=== PATIENT | male | born 1995 | race Caucasian/White ===

== ENCOUNTER 2017-04-01 13:48 | Emergency (ER) | payer OTHER ==
[~2017-04-01] VITALS: Ht 172.7 cm; Wt 63.5 kg
[~2017-04-01 13:48] MED LIST: CYCL-36 PO; IBUP-232 PO; Z.0.NO CURRENT MEDS
[2017-04-01 13:49] VITALS: BP 123/77; PULSE 89; RESP 18; TEMP 97.8; O2SAT 98
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
[2017-04-01] MEDS ORDERED: IBUP-232 PO (15:15)
[2017-04-01] MEDS ORDERED: CYCL10TA PO (15:15)
== END 2017-04-01 15:22 | disposition home or self-care (01) ==
LOC: NEPD 13:48
DX: S46.911A Strain of unspecified muscle, fascia and tendon at shoulder and upper arm level, right arm, initial encounter (principal); S16.1XXA Strain of muscle, fascia and tendon at neck level, initial encounter; J45.909 Unspecified asthma, uncomplicated; V43.52XA Car driver injured in collision with other type car in traffic accident, initial encounter; Z88.0 Allergy status to penicillin; Z88.1 Allergy status to other antibiotic agents
CPT/HCPCS: 72050; 73030; 99284; L0150

== ENCOUNTER 2017-07-01 09:40 | Inpatient (IN) | payer OTHER ==
[2017-07-01] VITALS (11 sets, daily range): BP systolic 113–134; BP diastolic 57–80; PULSE 92–132; RESP 18–31; TEMP 98.1–98.7; O2SAT 93–100
[~2017-07-01] VITALS: Ht 175.3 cm; Wt 64.0 kg
[~2017-07-01 09:40] MED LIST changes: +CYCL10TA PO
[2017-07-01] MEDS ORDERED: VENTAER INH (09:56)
[2017-07-01] MEDS ORDERED: ALBU.5I NEB (09:56)
[2017-07-01] MEDS ORDERED: RESP: ALBUTEROL 2.5 MG/IPRATROPIUM 0.5 MG NEB (SCH) INH ONE (10:00)
[2017-07-01] MEDS ORDERED: SODIUM CHLORIDE 0.9% FLUSH 10 ML FLUSH IVF PRN (10:00)
[2017-07-01] MEDS ORDERED: methylPREDNISolone SOD SUCC 125 MG/2 ML VIAL IV PUSH ONE (10:00)
[2017-07-01] MEDS ORDERED: ONDANSETRON HCL 4 MG/2 ML VIAL IVP ONE (10:00)
[2017-07-01] MEDS ORDERED: ONDANSETRON HCL 4 MG/2 ML VIAL ONE (10:00)
[2017-07-01] MEDS ORDERED: RESP: RACEPINEPHRINE 2.25% 0.5 ML NEB INH ONE (10:00)
[2017-07-01] MEDS: RESP: ALBUTEROL 2.5 MG/3 ML NEB (SCH) INH (10:11)
[2017-07-01 10:25] LABS: AUTOMATED NEUTROPHIL # 14.4 TH/MM3 (1.8-7.7); BASOPHIL # 0.1 TH/MM3 (0-0.2); BASOPHIL % 0.3 % (0.0-2.0); EOSINOPHIL % 5.6 % (0.0-4.0); HEMATOCRIT 45.3 % (39.0-51.0); HEMOGLOBIN 15.3 GM/DL (13.0-17.0); LYMPHOCYTE # 2.1 TH/MM3 (1.0-4.8); MEAN CELL VOLUME 87.3 FL (80.0-100.0); MEAN CORPUSCULAR HEMOGLOBIN 29.5 PG (27.0-34.0); MEAN CORPUSCULAR HGB CONC 33.7 % (32.0-36.0); MEAN PLATELET VOLUME 8.3 FL (7.0-11.0); MONO % 6.7 % (0.0-8.0); MONOCYTE # 1.3 TH/MM3 (0-0.9); NEUT % 76.4 % (16.0-70.0); PLATELET COUNT 334 TH/MM3 (150-450); RED BLOOD COUNT 5.19 MIL/MM3 (4.50-5.90); RED CELL DISTRIBUTION WIDTH 13.8 % (11.6-17.2); WHITE BLOOD COUNT 18.8 TH/MM3 (4.0-11.0)
[2017-07-01 10:40] LABS: ALT (GPT) 22 U/L (12-78); AST (GOT) 22 U/L (15-37); BLOOD UREA NITROGEN 8 MG/DL (7-18); CHLORIDE 106 MEQ/L (98-107); CREATININE 1.04 MG/DL (0.60-1.30); GLOMERULAR FILTRATION RATE 88 ML/MIN (>89); GLUCOSE,RANDOM 109 MG/DL (74-106); SODIUM (NA) 143 MEQ/L (136-145)
[2017-07-01 10:42] LABS: ALKALINE PHOSPHATASE 86 U/L (45-117); TOTAL BILIRUBIN ADULT 0.6 MG/DL (0.2-1.0); TOTAL PROTEIN 8.2 GM/DL (6.4-8.2)
[2017-07-01 10:43] LABS: LACTIC ACID SEPSIS PROTOCOL 2.4 mmol/L (0.4-2.0)
--- NOTE | 2017-07-01 10:48 | RADRPT ---
EXAM DATE/TIME: 07/01/2017 10:34 [facility] COMPARISON: No previous studies available for comparison. INDICATIONS : Shortness of breath. Cough. Lower midchest pain. MEDICAL HISTORY : Asthma. SURGICAL HISTORY : None. ENCOUNTER: Initial ACUITY: 1 day PAIN SCORE: 3/10 LOCATION: Bilateral chest FINDINGS: A single view of the chest demonstrates the lungs to be symmetrically aerated without evidence of mas s, infiltrate or effusion. The cardiomediastinal contours are unremarkable. Osseous structures are intact. CONCLUSION: No acute disease. David Hernandez MD on July 01, 2017 at 10:43 Board Certified Radiologist. This report was verified electronically.
[2017-07-01] MEDS ORDERED: methylPREDNISolone SOD SUCC 40 MG/1 ML VIAL IV PUSH SCH (12:00)
[2017-07-01] MEDS ORDERED: RESP: ALBUTEROL 2.5 MG/IPRATROPIUM 0.5 MG NEB (PRN) INH (12:00)
[2017-07-01] MEDS ORDERED: SENNOSIDES 8.6 MG TAB PO PRN (12:00)
[2017-07-01] MEDS: INSULIN NovoLIN REGULAR SUPPLEMENTAL SCALE SQ SCH ×3 (12:00→23:57)
[2017-07-01] MEDS ORDERED: DEXTROSE 50% IN WATER 50 ML VIAL(D50) IV PUSH PRN (12:00)
[2017-07-01] MEDS ORDERED: CHLORHEXIDINE GLUCONATE 2 % 1 PACK (2 CLOTHS) TOP PRN (12:00)
[2017-07-01] MEDS ORDERED: MISCELLANEOUS NURSING INFORMATION XX SCH (12:00)
[2017-07-01] MEDS: HEPARIN SODIUM - SQ 10,000 UNITS/ML VIAL SQ SCH ×2 (12:00→23:57)
[2017-07-01] MEDS: RESP: BUDESONIDE 0.5 MG/2 ML NEB NEB SCH ×2 (12:00→19:57)
[2017-07-01] MEDS ORDERED: GLUCAGON 1 MG/ML VIAL OTHER PRN (12:00)
[2017-07-01] MEDS ORDERED: LACTULOSE SYRUP 20 GM/30 ML CUP PO PRN (12:00)
[2017-07-01] MEDS ORDERED: MAGNESIUM HYDROXIDE SUSP 30 ML CUP PO PRN (12:00)
[2017-07-01] MEDS: RESP: ALBUTEROL 2.5 MG/IPRATROPIUM 0.5 MG NEB (SCH) INH ×4 (12:00→23:20)
[2017-07-01] MEDS ORDERED: BISACODYL 10 MG SUPP RECTAL PRN (12:00)
--- NOTE | 2017-07-01 13:07 | PD ---
HPI Chief Complaint: Respiratory Distress Time Seen by Provider: 10:00 Travel History International Travel<30 days: No Contact w/Intl Traveler<30days: No Traveled to known affect area: No History of Present Illness HPI This is a 22-year-old male with a history of asthma, multiple food allergies, who presents here today with complaints of severe shortness of breath and wheezing. Patient reportedly was using his nebulizer throughout the night and became worse this morning. The patient has no previous history of intubation. The patient denies any suspicious food products. Mom does report that he did have an upper respiratory infection recently. There are no other complaints at the time of my examination. PFSH Past Medical History Asthma: Yes Diabetes: No Respiratory: Yes (ASTHMA) Tetanus Vaccination: > 5 Years Influenza Vaccination: No Past Surgical History Surgical History: No Previous Surgery Social History Alcohol Use: No Tobacco Use: Yes (E CIG) Substance Use: No Allergies-Medications (Allergen,Severity, Reaction): Coded Allergies: amoxicillin (Unverified Allergy, Mild, 07/01/17) cefuroxime (Unverified Allergy, Mild, 07/01/17) egg (Unverified Allergy, Mild, 07/01/17) erythromycin base (Unverified Allergy, Mild, 07/01/17) penicillin G (Unverified Allergy, Mild, 07/01/17) Uncoded Allergies: MILK PROTEINS (Allergy, Intermediate, Anaphylaxis, 07/01/17) Reported Meds & Prescriptions Reported Meds & Active Scripts Active Reported Ventolin Hfa 18 GM Inh (Albuterol Sulfate) 90 Mcg/Act Aer 2 Puff INH Q4H PRN Albuterol Neb (Albuterol Sulfate) 2.5 Mg/0.5 Ml Neb 2.5 Mg NEB Q4HR NEB PRN Note: The Albuterol Sulfate Inhalation Solution is concentrated and must be diluted. Read complete instructions carefully before using. Review of Systems Except as stated in HPI: all other systems reviewed are Neg General / Constitutional: No: Fever, Chills HENT: No: Headaches, Lightheadedness Cardiovascular: No: Chest Pain or Discomfort, Palpitations Respiratory: Positive: Shortness of Breath, Wheezing, No: Cough, Stridor, Pleuritic Pain Gastrointestinal: Positive: Nausea, No: Vomiting, Abdominal Pain Genitourinary: No: Dysuria, Decreased Urinary Output Musculoskeletal: No: Weakness, Pain Neurologic: No: Weakness, Dizziness, Syncope, Headache Physical Exam Narrative GENERAL: Well-developed well-nourished male in moderate respiratory distress. SKIN: Focused skin assessment warm/dry. HEAD: Atraumatic. Normocephalic. EYES: No scleral icterus. No injection or drainage. ENT: No nasal bleeding or discharge. Mucous membranes pink and moist. NECK: Trachea midline. No JVD. CARDIOVASCULAR: Regular rate and rhythm. No murmur appreciated. RESPIRATORY: Positive accessory muscle use. Diffuse expiratory wheezes. Patient was tachypneic with a respiratory rate in the 30s. GASTROINTESTINAL: Abdomen soft, non-tender, nondistended. Hepatic and splenic margins not palpable. MUSCULOSKELETAL: No obvious deformities. No clubbing. No cyanosis. No edema. NEUROLOGICAL: Awake and alert. No obvious cranial nerve deficits. Motor grossly within normal limits. Fragmented speech secondary to shortness of breath Data Data Last Documented VS Vital Signs Date Time Temp Pulse Resp B/P (MAP) Pulse Ox O2 Delivery O2 Flow Rate FiO2 07/01/17 11:12 120 18 117/57 (77) 98 Room Air 07/01/17 10:09 4.00 07/01/17 09:49 98.7 Orders Orders Ondansetron Inj (Zofran Inj) (07/01/17 10:00) Electrocardiogram (07/01/17 10:00) Complete Blood Count With Diff (07/01/17 10:00) Comprehensive Metabolic Panel (07/01/17 10:00) Chest, Single Ap (07/01/17 10:00) Ecg Monitoring (07/01/17 10:00) Iv Access Insert/Monitor (07/01/17 10:00) Oximetry (07/01/17 10:00) Oxygen Administration (07/01/17 10:00) Methylprednisolone So Succ Inj (Solumedr (07/01/17 10:00) Ondansetron Inj (Zofran Inj) (07/01/17 10:00) Albuterol Neb (Albuterol Neb) (07/01/17 10:00) Albuterol-Ipratropium Neb (Duoneb Neb) (07/01/17 10:00) Racemic Epinephrine 2.25% Neb (Racepinep (07/01/17 10:00) Sodium Chloride 0.9% Flush (Ns Flush) (07/01/17 10:00) Lactic Acid Sepsis Protocol (07/01/17 10:00) Blood Culture (07/01/17 10:00) Blood Gas Venous (Vbg) (07/01/17 09:50) Admit To Inpatient (07/01/17 ) Code Status (07/01/17 11:56) Vital Signs (Adult) MAI.Q1H (07/01/17 11:56) Activity Bed Rest (07/01/17 11:56) Elevate Head Of Bed (07/01/17 11:56) Neuro Checks . ORDERED (07/01/17 11:56) Famotidine Inj (Pepcid Inj) (07/01/17 21:00) Albuterol-Ipratropium Neb (Duoneb Neb) (07/01/17 12:00) Albuterol-Ipratropium Neb (Duoneb Neb) (07/01/17 12:00) Complete Blood Count With Diff (07/02/17 04:00) Basic Metabolic Panel (Bmp) (07/02/17 04:00) Magnesium (Mg) (07/02/17 04:00) Phosphorus (Po4) (07/02/17 04:00) Resident Services Supervisor / Telemetry MAI.Q8H (07/01/17 11:56) Heparin Inj (Heparin Inj) (07/01/17 12:00) ^ Initiate Protocol (07/01/17 11:56) Instruction (07/01/17 11:56) [facility] (07/01/17 12:00) Chlorhexidine 2% Cloth (Chlorhexidine 2% (07/02/17 04:00) Chlorhexidine 2% Cloth (Chlorhexidine 2% (07/01/17 12:00) Mrsa Pcr Surveillance (07/01/17 11:56) Docusate Sodium-Senna (Aishwarya-Colace) (07/01/17 21:00) Magnesium Hydroxide Liq (Milk Of Magnesi (07/01/17 12:00) Sennosides (Senokot) (07/01/17 12:00) Bisacodyl Supp (Dulcolax Supp) (07/01/17 12:00) Lactulose Liq (Lactulose Liq) (07/01/17 12:00) Inpatient Certification (07/01/17 ) Methylprednisolone So Succ Inj (Solumedr (07/01/17 12:00) Budesonide Neb (Pulmicort Respule Neb) (07/01/17 12:00) Blood Glucose Goal (Criteria) (07/01/17 11:56) Hypoglycemia 70 Mg/Dl Or < (07/01/17 11:56) Notify Dr: Other (07/01/17 11:56) Dextrose 50% In Geovani (Vial) Inj (D50w (Vi (07/01/17 12:00) Glucagon Inj (Glucagon Inj) (07/01/17 12:00) Insulin Human Reg Supp Scale (Novolin R (07/01/17 12:00) Basic Metabolic Panel (Bmp) (07/02/17 06:00) Sodium Chlor 0.9% 1000 Ml Inj (Ns 1000 M (07/01/17 12:00) Admit Order (Ed Use Only) (07/01/17 12:58) Labs Laboratory Tests Test 07/01/17 09:50 07/01/17 10:05 Blood Gas Puncture Site IV Blood Gas Patient Temperature 98.6 Venous Blood pH 7.30 Venous Blood Partial Pressure CO2 58 mmHg Venous Blood Partial Pressure O2 31 mmHg Venous Blood HCO3 28 mmol/L Venous Blood Oxygen Saturation 49 % Venous Blood Oxygen Content 10.8 Vol % Venous Blood Base Excess 2.1 mmol/L Oxygen Delivery Device NASAL CANNULA Blood Gas Liter Flow 2 L/M White Blood Count 18.8 TH/MM3 Red Blood Count 5.19 MIL/MM3 Hemoglobin 15.3 GM/DL Hematocrit 45.3 % Mean Corpuscular Volume 87.3 FL Mean Corpuscular Hemoglobin 29.5 PG Mean Corpuscular Hemoglobin Concent 33.7 % Red Cell Distribution Width 13.8 % Platelet Count 334 TH/MM3 Mean Platelet Volume 8.3 FL Neutrophils (%) (Auto) 76.4 % Lymphocytes (%) (Auto) 11.0 % Monocytes (%) (Auto) 6.7 % Eosinophils (%) (Auto) 5.6 % Basophils (%) (Auto) 0.3 % Neutrophils # (Auto) 14.4 TH/MM3 Lymphocytes # (Auto) 2.1 TH/MM3 Monocytes # (Auto) 1.3 TH/MM3 Eosinophils # (Auto) 1.0 TH/MM3 Basophils # (Auto) 0.1 TH/MM3 CBC Comment DIFF FINAL Differential Comment Blood Urea Nitrogen 8 MG/DL Creatinine 1.04 MG/DL Random Glucose 109 MG/DL Total Protein 8.2 GM/DL Albumin 4.0 GM/DL Calcium Level 9.0 MG/DL Alkaline Phosphatase 86 U/L Aspartate Amino Transf (AST/SGOT) 22 U/L Alanine Aminotransferase (ALT/SGPT) 22 U/L Total Bilirubin 0.6 MG/DL Sodium Level 143 MEQ/L Potassium Level 3.5 MEQ/L Chloride Level 106 MEQ/L Carbon Dioxide Level 29.0 MEQ/L Anion Gap 8 MEQ/L Estimat Glomerular Filtration Rate 88 ML/MIN Lactic Acid Level 2.4 mmol/L MDM Medical Decision Making Medical Screen Exam Complete: Yes Emergency Medical Condition: Yes Differential Diagnosis Status asthmaticus versus pneumonia versus pulmonary embolism versus food allergy Narrative Course 22-year-old male presents in severe respiratory distress. Patient has a history of asthma and multiple food allergies as well as medication allergies. The patient had diffuse expiratory wheezes on presentation and was tachypneic. He was administered a racemic epinephrine followed by 3 nebulizer treatments first with albuterol and Atrovent. Patient was also given 125 mg of Solu- Medrol. The patient is much improved however still tachypneic. Given this, I recommend that he be admitted to the intensive care unit for closer observation. I discussed this with the intensive care doctor, Dr. Alcaraz, who is agreeable. Chest x-ray shows no evidence of acute infiltrate. White blood cell count was 18,000 which is likely due to demargination as he has no evidence of infection. Critical Care Narrative Aggregate critical care time was 60 minutes. Time to perform other separately billable procedures was not included in the critical care time. My time did not include minutes spent treating any other patients simultaneously or on activities that did not directly contribute to the patient's treatment. The services I provided to this patient were to treat and/or prevent clinically significant deterioration that could result in: I provided critical care services requiring my management, as noted below: Chart data review, documentation time, medication orders and management, vital sign assessments/reviewing monitor data, ordering and reviewing lab tests, ordering and interpreting/reviewing x-rays and diagnostic studies, care of the patient and discussion of the patient with the admitting physicians. Diagnosis Primary Impression: Status asthmaticus Admitting Information Admitting Physician Requests: Admit Jean Mera MD Jul 01, 2017 13:07
--- NOTE | 2017-07-01 15:42 | MH ---
cc: Carlos A Munson MD DATE OF ADMISSION: 07/01/2017 HISTORY OF PRESENT ILLNESS: The patient is in a 22-year-old male with a past medical history of bronchial asthma who presented to [facility] ED with shortness of breath associated with wheezing and a productive cough. The patient took his nebulizers at home 3 times without any relief. He denies any prior history of intubation. Also, he denies any constitutional symptoms. The patient is an occasional smoker. On arrival to the ER, he was tachypneic and tachycardic. A venous blood gas was performed on 2 liters oxygen, which showed a pH of 7.30, CO2 of 58. His chest x-ray in the ED showed no evidence of any acute disease. In the ER, he received bronchodilator treatment, Solu-Medrol 125 mg IV push x 1 and racemic epinephrine. When seen, he is on 2 liter oxygen with sats of 95%. He states that he feels better overall. PAST MEDICAL HISTORY: Significant for bronchial asthma. PAST SURGICAL HISTORY: Unremarkable. ALLERGIES: MILK PROTEIN, AMOXICILLIN, CEFUROXIME, ERYTHROMYCIN BASE PENICILLIN. SOCIAL HISTORY: Occasional drinker and occasional smoker. FAMILY HISTORY: The patient is adopted. REPORTED MEDICATIONS: Ventolin and albuterol nebs. REVIEW OF SYSTEMS: As per HPI. Rest of review of system unremarkable. PHYSICAL EXAMINATION: GENERAL: A 22-year-old male lying in bed in mild respiratory distress. VITAL SIGNS: Temperature 98.7, pulse of 102, respiratory rate is 20, blood pressure 120/60, saturation 95% on 2 liter oxygen. HEENT: Atraumatic, normocephalic. Pupils are equal, round, reactive to light and accommodation. Extraocular muscles intact. Conjunctivae pink. Nonicteric sclerae. Oral mucosa within normal. NECK: Supple. No JVD, adenopathy, thyromegaly. Trachea midline. CARDIOVASCULAR: Tachycardic. Normal S1, S2, no murmurs, rubs or gallops noted. LUNGS: Bilateral equal air entry with scattered wheezing. ABDOMEN: Soft, nontender. No distention. Positive bowel sounds. EXTREMITIES: No cyanosis, clubbing, or edema. NEUROLOGIC: No focal sensory deficit. DIAGNOSTIC STUDIES: Sodium 143, potassium 3.5, chloride 106, CO2 of 29, BUN 8, creatinine 1.04, glucose 109, lactic acid 3.5. WBC 18.8, hemoglobin 15.3, hematocrit 45, platelet count 334. Chest x-ray no acute disease. LFTs within normal. ASSESSMENT: 1. Acute hypoxemic and hypercapnic respiratory failure. 2. Bronchial asthma exacerbation. 3. Bronchospasms. 4. Lactic acidemia. 5. Leukocytosis. RECOMMENDATIONS: 1. Monitor neuro status closely and avoid any sedatives. 2. Continue with oxygen to maintain sats above 92%. 3. Bronchodilators in the form of DuoNeb q.4 hours plus q.2 hours p.r.n. for shortness of breath. In addition, we will add Pulmicort nebulizers 0.5 nebs q,12 hours. 4. IV steroids, Solu-Medrol 60 mg IV q.6 hours. 5. Noninvasive positive pressure ventilation p.r.n. for respiratory distress. I will consult pulmonary service as the patient will need outpatient followup. He will need a pulmonary function test as an outpatient to assess the severity of his obstructive lung disease. I will check a baseline IgE level. 6. Monitor heart rate and blood pressure closely and maintain MAP greater than 65 mmHg. Serial lactic acid monitoring until clear. 7. Monitor renal function, I's and O's and electrolyte replacement per protocol. Place on IV fluids and is 84 mL an hour. 8. Place on Pepcid 20 mg IV q.12 hours for GI prophylaxis. Start regular diet once his respiratory status improves. 9. Monitor for signs of infection which include fever and WBC. Chest x-ray in the ED showed no acute disease. We will send nasal washing to rule out influenza. 10. Sliding scale insulin with Accu-Cheks to maintain euglycemia as the patient will be on IV steroids. 11. Gastrointestinal prophylaxis with Pepcid and DVT prophylaxis with SCDs and heparin subq. Addendum: Patient is feeling better will sign off and transfer care to Hospitalist service. MD SHANNAN Turner/FILEMON , 03:18 PM , 03:40 PM CINDY
[2017-07-01] MEDS: SODIUM CHLOR 0.9% 1000 ML INJ 1,000 ML IV SCH ×2 (16:00→23:55)
[2017-07-01] MEDS: methylPREDNISolone SOD SUCC 125 MG/2 ML VIAL IV PUSH SCH ×2 (17:13→23:56)
--- NOTE | 2017-07-01 19:11 | EKG ---
Date Performed: 07/01/2017 Time Performed: 10:12:45 PTAGE: 22 years EKG: SINUS TACHYCARDIA POSSIBLE LEFT ATRIAL ENLARGEMENT INDETERMINATE AXIS INCOMPLETE RIGHT BUND LE BRANCH BLOCK ABNORMAL RHYTHM ECG NO PREVIOUS TRACING DOCTOR: Tay Painter Interpretating Date/Time 07/01/2017 19:08:37
[2017-07-01] MEDS: FAMOTIDINE 20 MG/2 ML VIAL IV PUSH SCH (19:39)
[2017-07-01] MEDS: DOCUSATE SODIUM 50 MG/SENNA 8.6 MG TAB PO SCH (19:40)
[2017-07-01] MEDS: CHLORHEXIDINE GLUCONATE 2 % 1 PACK (2 CLOTHS) TOP SCH (23:58)
[2017-07-02] VITALS (17 sets, daily range): BP systolic 108–128; BP diastolic 52–65; PULSE 87–115; RESP 18–26; TEMP 97.6–98.5; O2SAT 90–100
[2017-07-02] MEDS: SODIUM CHLOR 0.9% 1000 ML INJ 1,000 ML IV SCH (03:00)
[2017-07-02] MEDS: RESP: ALBUTEROL 2.5 MG/IPRATROPIUM 0.5 MG NEB (SCH) INH ×5 (03:20→20:06)
[2017-07-02 04:21] LABS: HEMATOCRIT 40.4 % (39.0-51.0); HEMOGLOBIN 13.6 GM/DL (13.0-17.0); LYMPH % 6.1 % (9.0-44.0); MEAN CELL VOLUME 86.1 FL (80.0-100.0); MEAN CORPUSCULAR HEMOGLOBIN 28.9 PG (27.0-34.0); MEAN CORPUSCULAR HGB CONC 33.6 % (32.0-36.0); MEAN PLATELET VOLUME 8.6 FL (7.0-11.0); MONO % 1.7 % (0.0-8.0); MONOCYTE # 0.3 TH/MM3 (0-0.9); NEUT % 92.2 % (16.0-70.0); PLATELET COUNT 308 TH/MM3 (150-450); WHITE BLOOD COUNT 16.3 TH/MM3 (4.0-11.0)
[2017-07-02 05:06] LABS: CALCIUM 8.9 MG/DL (8.5-10.1); CREATININE 0.93 MG/DL (0.60-1.30); MAGNESIUM 2.1 MG/DL (1.5-2.5)
[2017-07-02 05:07] LABS: PHOSPHORUS 2.7 MG/DL (2.5-4.9)
[2017-07-02] MEDS: INSULIN NovoLIN REGULAR SUPPLEMENTAL SCALE SQ SCH ×4 (06:00→21:07)
[2017-07-02] MEDS: methylPREDNISolone SOD SUCC 125 MG/2 ML VIAL IV PUSH SCH ×2 (06:10→11:25)
[2017-07-02] MEDS: DOCUSATE SODIUM 50 MG/SENNA 8.6 MG TAB PO SCH ×2 (08:53→21:00)
[2017-07-02] MEDS: FAMOTIDINE 20 MG/2 ML VIAL IV PUSH SCH (08:53)
[2017-07-02] MEDS: RESP: BUDESONIDE 0.5 MG/2 ML NEB NEB SCH ×2 (09:01→20:06)
--- NOTE | 2017-07-02 09:15 | HHI.PR ---
Subjective Remarks denies sob wants to go home Objective Vitals heart reg lung cta abd s/nt ext no edema Vital Signs Date Time Temp Pulse Resp B/P (MAP) Pulse Ox O2 Delivery O2 Flow Rate FiO2 07/02/17 09:04 100 07/02/17 06:00 110 07/02/17 06:00 110 20 109/55 (73) 92 07/02/17 05:00 100 21 108/52 (70) 92 07/02/17 04:00 99 07/02/17 04:00 98.2 108 23 111/55 (73) 92 07/02/17 03:00 87 19 118/56 (76) 93 07/02/17 02:00 99 24 116/56 (76) 92 07/02/17 02:00 99 07/02/17 01:00 104 23 118/55 (76) 92 07/02/17 00:00 98.5 110 24 122/57 (78) 93 07/02/17 00:00 110 07/01/17 23:00 103 26 119/58 (78) 93 07/01/17 22:00 106 07/01/17 22:00 106 27 121/57 (78) 96 07/01/17 21:00 105 25 122/61 (81) 95 07/01/17 20:00 92 19 113/63 (80) 100 07/01/17 20:00 92 07/01/17 19:00 98.4 108 31 114/73 (87) 94 07/01/17 18:00 109 07/01/17 16:00 107 07/01/17 16:00 98.1 107 18 126/71 (89) 94 07/01/17 15:28 07/01/17 14:55 102 20 120/60 (80) 95 Nasal Cannula 2.00 07/01/17 11:12 120 18 117/57 (77) 98 Room Air 07/01/17 10:09 116 28 134/58 (83) 98 Nasal Cannula 4.00 07/01/17 10:03 97 Nasal Cannula 4.00 07/01/17 09:51 130 32 94 Room Air 07/01/17 09:49 98.7 132 28 130/80 (97) 94 Result Diagram: 07/02/17 0320 07/02/17 0320 A/P Problem List: (1) Status asthmaticus ICD Codes: J45.902 - Unspecified asthma with status asthmaticus Status: Acute Plan: admitted for asthma exacerbation to ICU no intubation. pt back to baseline after iv solumedrol and nebs pulmonary consulted to establish care and f/u ambulate in unit this AM once seen by Dr Palmer will plan for d/c home. Valerio Abel MD Jul 02, 2017 09:15
[2017-07-02] MEDS: HEPARIN SODIUM - SQ 10,000 UNITS/ML VIAL SQ SCH ×2 (11:23→21:07)
[2017-07-02] MEDS ORDERED: POTASSIUM CHLORIDE 20 MEQ CONTROLLED RELEASE TAB PO ONE (14:00)
[2017-07-02] MEDS: predniSONE 20 MG TAB PO SCH (15:41)
[2017-07-02] MEDS: CHLORHEXIDINE GLUCONATE 2 % 1 PACK (2 CLOTHS) TOP SCH (21:07)
[2017-07-03] MEDS: RESP: ALBUTEROL 2.5 MG/IPRATROPIUM 0.5 MG NEB (SCH) INH ×6 (00:35→19:30)
[2017-07-03] MEDS: INSULIN NovoLIN REGULAR SUPPLEMENTAL SCALE SQ SCH ×3 (05:48→16:15)
[2017-07-03] MEDS: RESP: BUDESONIDE 0.5 MG/2 ML NEB NEB SCH ×2 (07:38→19:30)
[2017-07-03 07:40] VITALS: O2SAT 93
[2017-07-03 08:00] VITALS: BP 106/54; PULSE 104; RESP 21; TEMP 97.4; O2SAT 93
[2017-07-03] MEDS: DOCUSATE SODIUM 50 MG/SENNA 8.6 MG TAB PO SCH ×2 (09:00→19:33)
[2017-07-03] MEDS: predniSONE 20 MG TAB PO SCH (10:03)
[2017-07-03] MEDS: HEPARIN SODIUM - SQ 10,000 UNITS/ML VIAL SQ SCH (10:04)
[2017-07-03] MEDS ORDERED: PRED20 PO (10:45)
[2017-07-03] MEDS ORDERED: IPRA0.02 NEB (10:45)
[2017-07-03] MEDS ORDERED: SYMB160A INH (10:45)
[2017-07-03] MEDS ORDERED: ALBU0.08 NEB (10:45)
--- NOTE | 2017-07-03 11:06 | HHI.DCPOC ---
Discharge Care Plan Diagnosis: (1) Status asthmaticus Goals to Promote Your Health * To prevent worsening of your condition and complications * To maintain your health at the optimal level Directions to Meet Your Goals Take your medications as prescribed Follow your dietary instruction Follow activity as directed Keep your appointments as scheduled Take your immunizations and boosters as scheduled If your symptoms worsen call your PCP, if no PCP go to Urgent Care Center or Emergency Room Smoking is Dangerous to Your Health. Avoid second hand smoke Call the 24-hour hour crisis hotline for domestic abuse at Demetris Rose DO Jul 03, 2017 11:06
--- NOTE | 2017-07-03 11:06 | HHI.DS ---
Discharge Summary Admission Date Jul 01, 2017 at 13:00 Discharge Date: Jul 03, 2017 Admitting Diagnosis status asmaticus (1) Status asthmaticus Diagnosis: Principal ICD Codes: J45.902 - Unspecified asthma with status asthmaticus Status: Acute CBC/BMP: 07/02/17 0320 07/02/17 0320 Significant Findings Laboratory Tests Test 07/01/17 09:50 07/01/17 10:05 07/01/17 13:50 07/01/17 17:00 Venous Blood pH 7.30 (7.360-7.400) Venous Blood Partial Pressure CO2 58 mmHg (44-48) Venous Blood Partial Pressure O2 31 mmHg (35-40) Venous Blood HCO3 28 mmol/L (22-26) Venous Blood Oxygen Saturation 49 % (70-76) Venous Blood Base Excess 2.1 mmol/L (-2-2) White Blood Count 18.8 TH/MM3 (4.0-11.0) Neutrophils (%) (Auto) 76.4 % (16.0-70.0) Eosinophils (%) (Auto) 5.6 % (0.0-4.0) Neutrophils # (Auto) 14.4 TH/MM3 (1.8-7.7) Monocytes # (Auto) 1.3 TH/MM3 (0-0.9) Eosinophils # (Auto) 1.0 TH/MM3 (0-0.4) Random Glucose 109 MG/DL (74-106) Estimat Glomerular Filtration Rate 88 ML/MIN (>89) Lactic Acid Level 2.4 mmol/L (0.4-2.0) 3.5 mmol/L (0.4-2.0) Blood Gas Base Excess -2.6 mmol/L (-2-2) Arterial Blood pH 7.37 (7.380-7.420) Test 07/01/17 21:42 07/02/17 03:20 Lactic Acid Level 3.7 mmol/L (0.4-2.0) White Blood Count 16.3 TH/MM3 (4.0-11.0) Neutrophils (%) (Auto) 92.2 % (16.0-70.0) Lymphocytes (%) (Auto) 6.1 % (9.0-44.0) Neutrophils # (Auto) 15.0 TH/MM3 (1.8-7.7) Random Glucose 119 MG/DL (74-106) Potassium Level 3.4 MEQ/L (3.5-5.1) Imaging Last Impressions Chest X-Ray 07/01/17 1000 Signed Impressions: Service Date/Time: Saturday, July 01, 2017 10:34 - CONCLUSION: No acute disease. David Hernandez MD Hospital Course (1) Status asthmaticus - Pt was initially admitted to the ICU under the care of the [employer] [facility] service - Pt was treated with IV soumedrol and nebulized breathing treatments - Pt improved and was transferred to the Medical Service. - Solumedrol was changed to PO prednisone - Pt will be discharge on PO prednisone, albuterol/ipratropium nebules q6h WA and prn, symbicort BID - Pt strongly advised to stop vaping nicotine. - I contacted [facility] Case Management. They will contact Mr. Juarez with information regarding [facility] smoking cessation program/resources. - Pt to f/u with PCP, Dr. Paul Ni, in 3-5 days - Case d/w Pulmonary Medicine, Dr. Palmer. Dr. Palmer offered to see pt at [place] this evening. Pt declines further hospitalization. - Pt will f/u with Dr. Palmer outpt, in 1 week. - Pt able to easily tolerate briskly walking the hallways with his mother. - Pt to call his PCP or return to the ER for any further problems. Pt Condition on Discharge: Stable Discharge Disposition: Discharge Home Discharge Instructions DIET: Follow Instructions for: As Tolerated, No Restrictions Activities you can perform: Regular-No Restrictions Activities to Avoid: Strenuous Activity Other Activity Instructions: NO smoking/ No vaping Follow up Referrals: PCP Follow-up - 3-[address] Paul Ni Pulmonology - 1 Week with Eleno Palmer MD New Medications: Albuterol Neb (Albuterol Neb) 2.5 Mg/3 Ml Neb 2.5 MG NEB Q6HR WHILE AWAKE NEB for Breathing Treatment, #60 NEBULE 0 Refills use 6h while awake or q2 hours prn SOB/wheezing (use together with atrovent) Budesonide-Formoterol Inh (Symbicort Inh) 160-4.5 Mcg/Act Aero 1 PUFF INH Q12HR, #1 INHALER 0 Refills Ipratropium Neb (Ipratropium Neb) 0.5 Mg/2.5 Ml Amp 0.5 MG NEB Q6HR NEB for Breathing Treatment for 30 Days, NEBULE 0 Refills use q6h while awake or q2 h prn SOB/wheezing (use together with albuterol) Prednisone (Prednisone) 20 Mg Tab 20 MG PO DIRECTED for Inflammation, #11 TAB 0 Refills dispense: QS 20mg BID x 3d, then 20mg Daily x3d, then 10mg daily x 3d, then stop Continued Medications: Albuterol 18 GM Inh (Ventolin Hfa 18 GM Inh) 90 Mcg/Act Aer 2 PUFF INH Q4H PRN for SHORTNESS OF BREATH, #1 INHALER 0 Refills Discontinued Medications: Albuterol Neb (Albuterol Neb) 2.5 Mg/0.5 Ml Neb 2.5 MG NEB Q4HR NEB PRN for WHEEZING, EA Note: The Albuterol Sulfate Inhalation Solution is concentrated and must be diluted. Read complete instructions carefully before using. Demetris Rose DO Jul 03, 2017 11:06
[2017-07-03 12:00] VITALS: BP 114/61; PULSE 92; RESP 20; TEMP 97.5; O2SAT 93
[2017-07-03 13:45] VITALS: BP 112/55; PULSE 120; RESP 32; TEMP 97.1; O2SAT 90
[2017-07-03] MEDS ORDERED: ONDANSETRON HCL 4 MG/2 ML VIAL IV PRN (14:00)
[2017-07-03] MEDS ORDERED: PRIL20TA2 PO (14:43)
[2017-07-03] MEDS ORDERED: PANTOPRAZOLE SODIUM 40 MG VIAL IV PUSH ONE (15:00)
[2017-07-03 15:22] VITALS: O2SAT 95
--- NOTE | 2017-07-03 15:54 | RADRPT ---
EXAM DATE/TIME: 07/03/2017 15:06 [place] COMPARISON: No previous studies available for comparison. INDICATIONS : Nausea and vomiting. MEDICAL HISTORY : None. SURGICAL HISTORY : None. ENCOUNTER: Initial ACUITY: 1 day PAIN SCORE: 0/10 LOCATION: Bilateral abdomen. FINDINGS: Supine view of the abdomen was performed. The abdominal bowel gas pattern is normal. No abnormal ma sses, calcifications, or organomegaly is seen. The osseous structures are unremarkable. CONCLUSION: Unremarkable nonobstructive bowel gas pattern. Will Arriaza MD on July 03, 2017 at 15:51 Board Certified Radiologist. This report was verified electronically.
[2017-07-03 16:00] VITALS: BP 109/56; PULSE 94; RESP 18; TEMP 97.6; O2SAT 93
[2017-07-03 18:05] LABS: TROPONIN I LESS THAN 0.02 NG/ML (0.02-0.05)
[2017-07-03] MEDS ORDERED: BUDESONIDE-FORMOTEROL 160/4.5 MCG INHALER INH SCH (21:00)
--- NOTE | 2017-07-04 16:13 | EKG ---
Date Performed: 07/03/2017 Time Performed: 15:56:49 PTAGE: 22 years EKG: Sinus rhythm WITH SINUS ARRHYTHMIA NORMAL ECG PREVIOUS TRACING : 07/01/2017 10.12 Previous intraventricular conduction delay appears to have improved. DOCTOR: Zeke Willis Interpretating Date/Time 07/04/2017 16:11:01
== END 2017-07-03 21:14 | disposition home or self-care (01) | DRG 189 ==
LOC: NEPE 09:40 → NEDA 13:00 → HIMW 15:15 → N06B 07-02 20:31
PROVIDERS: ADMIT Hospitalist; ATTEND Hospitalist
DX: J96.01 Acute respiratory failure with hypoxia (principal); E87.2 Acidosis; J45.902 Unspecified asthma with status asthmaticus; J45.901 Unspecified asthma with (acute) exacerbation; J96.02 Acute respiratory failure with hypercapnia; D72.829 Elevated white blood cell count, unspecified; Z72.0 Tobacco use
CPT/HCPCS: 36600; 71045; 74018; 80048; 80053; 82550; 82785; 82805; 83605; 83735; 84100; 84484; 85025; 87040; 87804; 93005; 94640; 94664; 96374; 96375; C9113; J2405; J2930; J7030; J7512; J7613; J7626